=== PATIENT | female | born 1940 | race Caucasian/White ===

== ENCOUNTER 2016-06-18 10:53 | Outpatient (CLI) | payer MEDICARE, MEDICAID | END 2016-06-18 10:54 | disposition home or self-care (01) | DX: Z12.31 Encounter for screening mammogram for malignant neoplasm of breast (principal) ==

== ENCOUNTER 2017-02-10 09:58 | Outpatient (CLI) | payer MEDICARE, MEDICAID ==
[2017-02-10 13:05] LABS: BASOPHILS # (AUTO) 0.1 10^3/uL (0.0-0.1); BASOPHILS % (AUTO) 1.2 %; EOSINOPHILS # (AUTO) 0.2 10^3/uL (0.0-0.7); EOSINOPHILS % (AUTO) 2.2 %; HCT - HEMATOCRIT 37.1 % (37.0-47.0); HGB - HEMOGLOBIN 12.2 g/dL (12.0-16.0); LYMPHOCYTES # (AUTO) 2.3 10^3/uL (1.5-3.5); LYMPHOCYTES % (AUTO) 30.4 %; MEAN CORPUSCULAR HEMOGLOBIN 29.2 pg (27.0-31.0); MEAN CORPUSCULAR VOLUME 88.7 fL (81.0-99.0); MEAN PLATELET VOLUME 8.6 fL (7.9-10.8); MONOCYTES # (AUTO) 0.6 10^3/uL (0.0-1.0); MONOCYTES % (AUTO) 7.3 %; NEUTROPHILS # (AUTO) 4.5 10^3/uL (1.5-6.6); NEUTROPHILS % (AUTO) 58.9 %; RED BLOOD COUNT 4.19 10^6/uL (4.20-5.40); RED CELL DISTRIBUTION WIDTH 14.7 % (12.0-15.0); UNCORRECTED WHITE BLOOD COUNT 7.7 x10^3/uL; WHITE BLOOD COUNT 7.7 x10^3/uL (4.8-10.8)
[2017-02-10 14:05] LABS: THYROID STIMULATING HORMONE 1.78 uIU/mL (0.34-5.60)
[2017-02-10 14:09] LABS: FERRITIN 25.5 ng/mL (11.0-306.8)
[2017-02-10 14:25] LABS: ALBUMIN/GLOBULIN RATIO 1.3 (1.0-2.2); BILIRUBIN,TOTAL 0.5 mg/dL (0.2-1.0); BUN - BLOOD UREA NITROGEN 30 mg/dL (6-20); CALCIUM 9.7 mg/dL (8.5-10.3); CARBON DIOXIDE - CO2 26 mmol/L (21-32); CHLORIDE 102 mmol/L (101-111); CHOL/HDL RATIO 3.4 (<4.4); CHOLESTEROL 260 mg/dL; CREATININE 0.9 mg/dL (0.4-1.0); GFR - MDRD 61 (>89); GLUCOSE 106 mg/dL (70-100); HDL CHOLESTEROL 77 mg/dL; IRON 90 ug/dL (28-170); POTASSIUM 4.5 mmol/L (3.5-5.0); SODIUM 138 mmol/L (135-145); TOTAL IRON BINDING CAPACITY 340 ug/dL (250-450); TRANSFERRIN 243 mg/dL (192-382); TRIGLYCERIDES 157 mg/dL; VLDL CHOLESTEROL 31 mg/dL
== END 2017-02-10 09:59 | disposition home or self-care (01) ==
LOC: LAB.WCP 09:58
PROVIDERS: ATTEND Family Medicine
DX: E78.5 Hyperlipidemia, unspecified (principal); R53.83 Other fatigue
CPT/HCPCS: 36415; 80053; 80061; 82728; 83540; 84443; 84466; 85025

== ENCOUNTER 2017-02-10 18:49 | Emergency (ER) | payer MEDICARE, MEDICAID ==
[2017-02-10 19:07] VITALS: BP 154/74
--- NOTE | 2017-02-10 20:12 | XRAY Preliminary Report ---
Exam: XR SHOULDER 3 VIEW RT IMPRESSION: No acute findings. Mild right acromioclavicular degenerative joint disease. [facility] SITE ID: [id number]
--- NOTE | 2017-02-10 20:15 | XRAY Report ---
EXAM: RIGHT SHOULDER RADIOGRAPHY EXAM DATE: 02/10/2017 07:49 PM. CLINICAL HISTORY: Sudden onset of right shoulder pain. COMPARISON: None. TECHNIQUE: 3 views. FINDINGS: Bones: Normal. No fracture or bone lesion. Joints: The glenohumeral and acromioclavicular joints are normal in alignment. No dislocation. Mild r ight acromioclavicular degenerative joint disease. Soft tissues: No acute findings. IMPRESSION: No acute findings. Mild right acromioclavicular degenerative joint disease. [facility] Referring Provider Line: [phone] SITE ID: [id number]
== END 2017-02-10 21:04 | disposition left against medical advice (07) ==
LOC: ED 18:49
DX: Z53.21 Procedure and treatment not carried out due to patient leaving prior to being seen by health care provider (principal)
CPT/HCPCS: 36415; 80053; 80061; 82728; 83540; 84443; 84466; 85025; 99283

== ENCOUNTER 2017-03-10 10:50 | Outpatient (CLI) | payer MEDICARE, MEDICAID | END 2017-03-10 10:51 | disposition home or self-care (01) | LOC: SC 10:50 | PROVIDERS: ATTEND Internal Medicine Pulmonary Disease | DX: G47.10 Hypersomnia, unspecified (principal); R51 Headache; R06.83 Snoring; G25.81 Restless legs syndrome; G47.8 Other sleep disorders | CPT/HCPCS: 99203; G0463; 99212 ==

== ENCOUNTER 2017-03-11 11:49 | Day surgery (SDC) | payer MEDICARE, MEDICAID ==
[2017-03-11] MEDS ORDERED: LACTATED RINGERS 1,000 ML IV ONE (12:23)
[2017-03-11] MEDS ORDERED: fentaNYL 100 MCG/2 ML VIAL IVP ONE (13:49)
[2017-03-11] MEDS ORDERED: MIDAZOLAM 2 MG/2 ML VIAL IVP ONE (13:49)
[2017-03-11 14:47] VITALS: BP 118/66
== END 2017-03-11 11:50 | disposition home or self-care (01) ==
LOC: SDS 11:49
PROVIDERS: ATTEND Surgery
PROC: 0DJD8ZZ Inspection of Lower Intestinal Tract, Via Natural or Artificial Opening Endoscopic (ICD-10-PCS; principal; 2017-03-11 13:15)
DX: Z12.11 Encounter for screening for malignant neoplasm of colon (principal); K64.8 Other hemorrhoids; Z79.82 Long term (current) use of aspirin; E78.5 Hyperlipidemia, unspecified
CPT/HCPCS: G0121; J7120

== ENCOUNTER 2017-05-16 21:36 | Outpatient (CLI) | payer MEDICARE, MEDICAID | END 2017-05-16 21:37 | disposition home or self-care (01) | LOC: SC 21:36 | PROVIDERS: ATTEND Internal Medicine Pulmonary Disease | DX: Z53.9 Procedure and treatment not carried out, unspecified reason (principal) | CPT/HCPCS: 95810 ==

== ENCOUNTER 2017-07-04 21:05 | Outpatient (CLI) | payer MEDICARE, MEDICAID | END 2017-07-04 21:06 | disposition home or self-care (01) | LOC: SC 21:05 | PROVIDERS: ATTEND Internal Medicine Pulmonary Disease | DX: G47.33 Obstructive sleep apnea (adult) (pediatric) (principal); G47.61 Periodic limb movement disorder | CPT/HCPCS: 95810 ==

== ENCOUNTER 2017-08-05 13:06 | Outpatient (CLI) | payer MEDICARE, MEDICAID | END 2017-08-05 13:07 | disposition home or self-care (01) | LOC: SC 13:06 | PROVIDERS: ATTEND Internal Medicine Pulmonary Disease | DX: G47.33 Obstructive sleep apnea (adult) (pediatric) (principal) | CPT/HCPCS: 99213; G0463; 99212 ==

== ENCOUNTER 2017-10-28 11:08 | Outpatient (CLI) | payer MEDICARE, MEDICAID | END 2017-10-28 11:09 | disposition home or self-care (01) | LOC: SC 11:08 | PROVIDERS: ATTEND Nurse Practitioner Family | DX: G47.33 Obstructive sleep apnea (adult) (pediatric) (principal) | CPT/HCPCS: 99214; G0463; 99212 ==

== ENCOUNTER 2017-12-04 11:14 | Outpatient (CLI) | payer MEDICARE, MEDICAID | END 2017-12-04 11:15 | disposition home or self-care (01) | LOC: SC 11:14 | PROVIDERS: ATTEND Nurse Practitioner Family | DX: G47.33 Obstructive sleep apnea (adult) (pediatric) (principal); G25.81 Restless legs syndrome | CPT/HCPCS: 99214; G0463; 99212 ==

== ENCOUNTER 2018-01-07 10:41 | Outpatient (CLI) | payer MEDICARE, MEDICAID | END 2018-01-07 10:42 | disposition home or self-care (01) | LOC: SC 10:41 | PROVIDERS: ATTEND Nurse Practitioner Family | DX: G47.33 Obstructive sleep apnea (adult) (pediatric) (principal) | CPT/HCPCS: 99214; G0463; 99212 ==

== ENCOUNTER 2018-02-15 19:20 | Outpatient (CLI) | payer MEDICARE, MEDICAID | END 2018-02-15 19:21 | disposition home or self-care (01) | LOC: SC 19:20 | PROVIDERS: ATTEND Internal Medicine Pulmonary Disease | DX: G47.33 Obstructive sleep apnea (adult) (pediatric) (principal) | CPT/HCPCS: 95810 ==

== ENCOUNTER 2018-06-04 13:07 | Outpatient (CLI) | payer MEDICARE, MEDICAID | END 2018-06-04 13:08 | disposition home or self-care (01) | LOC: SC 13:07 | PROVIDERS: ATTEND Nurse Practitioner Family | DX: G47.33 Obstructive sleep apnea (adult) (pediatric) (principal) | CPT/HCPCS: 99214; G0463; 99212 ==

== ENCOUNTER 2018-06-06 20:08 | Outpatient (CLI) | payer MEDICARE, MEDICAID | END 2018-06-06 20:09 | disposition home or self-care (01) | LOC: SC 20:08 | PROVIDERS: ATTEND Internal Medicine Pulmonary Disease | DX: G47.33 Obstructive sleep apnea (adult) (pediatric) (principal) | CPT/HCPCS: 95811 ==

== ENCOUNTER 2018-07-03 12:38 | Outpatient (CLI) | payer MEDICARE, MEDICAID ==
[2018-07-03 19:47] LABS: BASOPHILS # (AUTO) 0.1 10^3/uL (0.0-0.1); BASOPHILS % (AUTO) 1.2 %; EOSINOPHILS # (AUTO) 0.1 10^3/uL (0.0-0.7); EOSINOPHILS % (AUTO) 2.1 %; LYMPHOCYTES % (AUTO) 32.2 %; MEAN CORPUSCULAR HEMOGLOBIN 28.8 pg (27.0-31.0); MEAN CORPUSCULAR HGB CONC 32.3 g/dL (32.0-36.0); MEAN CORPUSCULAR VOLUME 89.3 fL (81.0-99.0); MEAN PLATELET VOLUME 8.6 fL (7.9-10.8); MONOCYTES # (AUTO) 0.4 10^3/uL (0.0-1.0); MONOCYTES % (AUTO) 7.3 %; NEUTROPHILS # (AUTO) 3.5 10^3/uL (1.5-6.6); NEUTROPHILS % (AUTO) 57.2 %; PLT - PLATELET COUNT 310 10^3/uL (130-450); RED BLOOD COUNT 4.14 10^6/uL (4.20-5.40); RED CELL DISTRIBUTION WIDTH 14.2 % (12.0-15.0); WHITE BLOOD COUNT 6.1 x10^3/uL (4.8-10.8)
[2018-07-03 20:23] LABS: ALBUMIN 4.1 g/dL (3.2-5.5); ALBUMIN/GLOBULIN RATIO 1.1 (1.0-2.2); ALKALINE PHOSPHATASE 59 IU/L (42-121); ALT ALANINE AMINOTRANSFERASE 21 IU/L (10-60); AST ASPARTATE AMINOTRANSFERASE 23 IU/L (10-42); BILIRUBIN,TOTAL 0.5 mg/dL (0.2-1.0); BUN - BLOOD UREA NITROGEN 28 mg/dL (6-20); CALCIUM 9.4 mg/dL (8.5-10.3); CARBON DIOXIDE - CO2 27 mmol/L (21-32); CHLORIDE 105 mmol/L (101-111); CHOLESTEROL 246 mg/dL; CREATININE 0.9 mg/dL (0.4-1.0); GFR - MDRD 61 (>89); GLUCOSE 98 mg/dL (70-100); HDL CHOLESTEROL 82 mg/dL; LDL CHOLESTEROL,CALCULATED 140 mg/dL; LDL/HDL RATIO 1.7 (<4.4); MAGNESIUM 2.6 mg/dL (1.7-2.8); SODIUM 141 mmol/L (135-145); TOTAL PROTEIN 7.9 g/dL (6.7-8.2); VLDL CHOLESTEROL 24 mg/dL
== END 2018-07-03 12:39 | disposition home or self-care (01) ==
LOC: LAB.WCP 12:38
PROVIDERS: ATTEND Family Medicine
DX: E61.2 Magnesium deficiency (principal); E78.5 Hyperlipidemia, unspecified; F32.9 Major depressive disorder, single episode, unspecified; R03.0 Elevated blood-pressure reading, without diagnosis of hypertension
CPT/HCPCS: 36415; 80053; 80061; 83721; 83735; 84443; 85025

== ENCOUNTER 2018-08-06 11:06 | Outpatient (CLI) | payer MEDICARE, MEDICAID | END 2018-08-06 11:07 | disposition home or self-care (01) | LOC: SC 11:06 | PROVIDERS: ATTEND Nurse Practitioner Family | DX: G47.33 Obstructive sleep apnea (adult) (pediatric) (principal); G25.81 Restless legs syndrome | CPT/HCPCS: 99214; G0463; 99212 ==

== ENCOUNTER 2018-09-08 13:15 | Outpatient (CLI) | payer MEDICARE, MEDICAID | END 2018-09-08 13:16 | disposition home or self-care (01) | LOC: SC 13:15 | PROVIDERS: ATTEND Nurse Practitioner Family | DX: G47.33 Obstructive sleep apnea (adult) (pediatric) (principal) | CPT/HCPCS: 99214; G0463; 99212 ==

== ENCOUNTER 2018-10-20 10:33 | Outpatient (CLI) | payer MEDICARE, MEDICAID | END 2018-10-20 10:34 | disposition critical access hospital (66) | LOC: EMS 10:33 | PROVIDERS: ATTEND Surgery | DX: R42 Dizziness and giddiness (principal); R06.02 Shortness of breath; R10.9 Unspecified abdominal pain | CPT/HCPCS: A0425; A0429 ==

== ENCOUNTER 2018-10-20 10:57 | Emergency (ER) | payer MEDICARE, MEDICAID ==
[2018-10-20 11:26] LABS: BASOPHILS # (AUTO) 0.1 10^3/uL (0.0-0.1); BASOPHILS % (AUTO) 0.9 %; EOSINOPHILS # (AUTO) 0.2 10^3/uL (0.0-0.7); EOSINOPHILS % (AUTO) 1.8 %; HGB - HEMOGLOBIN 11.1 g/dL (12.0-16.0); LYMPHOCYTES # (AUTO) 2.4 10^3/uL (1.5-3.5); LYMPHOCYTES % (AUTO) 26.5 %; MEAN CORPUSCULAR HEMOGLOBIN 28.9 pg (27.0-31.0); MEAN CORPUSCULAR VOLUME 90.4 fL (81.0-99.0); MONOCYTES # (AUTO) 0.5 10^3/uL (0.0-1.0); MONOCYTES % (AUTO) 5.7 %; NEUTROPHILS # (AUTO) 5.7 10^3/uL (1.5-6.6); NEUTROPHILS % (AUTO) 64.8 %; PLT - PLATELET COUNT 316 10^3/uL (130-450); RED BLOOD COUNT 3.84 10^6/uL (4.20-5.40); RED CELL DISTRIBUTION WIDTH 14.1 % (12.0-15.0); WHITE BLOOD COUNT 8.9 x10^3/uL (4.8-10.8)
[2018-10-20] MEDS ORDERED: SODIUM CHLORIDE 0.9% 1,000 ML IV ONE ×2 (11:36→13:31)
--- NOTE | 2018-10-20 11:39 | ED Physician Documentation ---
History of Present Illness - Stated complaint Stated Complaint: DIZZY - Chief complaint Chief Complaint: General - History obtained from History obtained from: Patient - History of Present Illness Timing: Today - Additonal information Additional information: Patient has been in her usual state of health and was getting ready to go see her doctor for routine visit when she had a basket of laundry in her arms she noted that she felt lightheaded and had spots in front of her vision. She really did not feel well went into see her doctor her doctor noticed this and checked her orthostatics they were okay and the patient was complaining of dizziness and lightheadedness and the patient is sent to the emergency department for further evaluation. The patient herself states that she has not had any vomiting or diarrhea recently she has not had any sweats she does have a dry mouth and thinks that she has been hydrating adequately.She denies any chest pain. Review of Systems Constitutional: denies: Fever, Sweats Eyes: denies: Decreased vision Ears: denies: Ear pain Nose: denies: Congestion Throat: denies: Sore throat Cardiac: denies: Chest pain / pressure, Palpitations Respiratory: denies: Dyspnea, Cough GI: denies: Abdominal Pain, Nausea, Vomiting : denies: Dysuria, Frequency Skin: denies: Rash Musculoskeletal: denies: Neck pain, Back pain, Extremity pain Neurologic: reports: Generalized weakness, Other (lightheaded and dizzy). de nies: Focal weakness, Numbness, Confused, Altered mental status, LOC PD PAST MEDICAL HISTORY - Past Medical History Cardiovascular: None Respiratory: Asthma Endocrine/Autoimmune: None GI: None URBAN FORESTER: None : None HEENT: None Psych: Anxiety Musculoskeletal: Other Derm: None - Past Surgical History Past Surgical History: Yes General: Other /URBAN FORESTER: Hysterectomy - Present Medications Home Medications: Ambulatory Orders Medication Instructions Recorded Confirmed Albuterol Sulf [Ventolin Hfa 1 puffs IH DAILY PRN 03/10/17 03/10/17 Inhaler] Fluticasone [Flonase] 1 spray TACOS DAILY PRN 03/10/17 03/10/17 Montelukast [Singulair] 10 mg PO DAILY 03/10/17 03/10/17 Sertraline [Zoloft] 100 mg PO DAILY 03/10/17 03/10/17 traMADol [Ultram] 50 mg PO BID 03/10/17 03/10/17 - Allergies Allergies/Adverse Reactions: Allergies Allergy/AdvReac Type Severity Reaction Status Date / Time succinylcholine AdvReac Anaphylaxis Verified 10/20/18 11:08 [From Anectine] - Social History Does the pt smoke?: No Smoking Status: Never smoker Does the pt drink ETOH?: No Does the pt have substance abuse?: No - Immunizations Immunizations are current?: Yes - POLST Patient has POLST: No PD ED PE NORMAL - Vitals Vital signs reviewed: Yes (tachy and hypertensive ) - General General: Alert and oriented X 3, No acute distress, Well developed/nourished - HEENT HEENT: Atraumatic, PERRL, EOMI, Ears normal, Pharynx benign, Other (dry mucous membranes ) - Neck Neck: Supple, no meningeal sign, No bony TTP - Cardiac Cardiac: RRR, No murmur, Other (tachy to 100) - Respiratory Respiratory: No respiratory distress, Clear bilaterally - Abdomen Abdomen: Soft, Non tender - Back Back: No CVA TTP, No spinal TTP - Derm Derm: Normal color, Warm and dry, No rash - Extremities Extremities: No deformity, No edema - Neuro Neuro: Alert and oriented X 3, time stamp assembler 2-12 intact, No motor deficit, No sensory deficit, Normal speech Eye Opening: Spontaneous Motor: Obeys Commands Verbal: Oriented GCS Score: 15 - Psych Psych: Normal mood, Normal affect Results - Vitals Vitals: Vital Signs - 24 hr 10/20/18 10/20/18 10/20/18 11:01 13:29 13:39 Temperature 35.9 C L 36.5 C Heart Rate 105 H 92 87 Respiratory 20 20 18 Rate Blood Pressure 147/98 H 130/63 129/74 O2 Saturation 99 100 99 Oxygen O2 Source Room air - EKG (time done) 1120 Rate: Rate (enter#) (87) Rhythm: NSR Compare to prior EKG: Old EKG unavailable Computer interpretation: Agree with computer - Labs Labs: Laboratory Tests 10/20/18 10/20/18 10/20/18 11:10 11:10 11:10 WBC 8.9 RBC 3.84 L Hgb 11.1 L Hct 34.7 L MCV 90.4 MCH 28.9 MCHC 32.0 RDW 14.1 Plt Count 316 MPV 10.0 Neut # (Auto) 5.7 Lymph # (Auto) 2.4 Weld # (Auto) 0.5 Eos # (Auto) 0.2 Baso # (Auto) 0.1 Absolute Nucleated RBC 0.00 Nucleated RBC % 0.0 Sodium 139 Potassium 3.9 Chloride 102 Carbon Dioxide 23 Anion Gap 14.0 H BUN 19 Creatinine 1.0 Estimated GFR (MDRD) 54 L Glucose 106 H Calcium 9.3 Total Bilirubin 0.4 AST 22 ALT 21 Alkaline Phosphatase 67 Troponin I < 0.04 Total Protein 8.2 Albumin 4.3 Globulin 3.9 Albumin/Globulin Ratio 1.1 Lipase 40 Urine Color Urine Clarity Urine pH Ur Specific [place] Urine Protein Urine Glucose (UA) Urine Ketones Urine Occult Blood Urine Nitrite Urine Bilirubin Urine Urobilinogen Ur Leukocyte Esterase Urine RBC Urine WBC Ur Squamous Epith Cells Urine Bacteria Ur Microscopic Review Urine Culture Comments 10/20/18 11:11 WBC RBC Hgb Hct MCV MCH MCHC RDW Plt Count MPV Neut # (Auto) Lymph # (Auto) Weld # (Auto) Eos # (Auto) Baso # (Auto) Absolute Nucleated RBC Nucleated RBC % Sodium Potassium Chloride Carbon Dioxide Anion Gap BUN Creatinine Estimated GFR (MDRD) Glucose Calcium Total Bilirubin AST ALT Alkaline Phosphatase Troponin I Total Protein Albumin Globulin Albumin/Globulin Ratio Lipase Urine Color YELLOW Urine Clarity CLEAR Urine pH 7.0 Ur Specific [place] <=1.005 Urine Protein NEGATIVE Urine Glucose (UA) NEGATIVE Urine Ketones NEGATIVE Urine Occult Blood NEGATIVE Urine Nitrite NEGATIVE Urine Bilirubin NEGATIVE Urine Urobilinogen 0.2 (NORMAL) Ur Leukocyte Esterase TRACE H Urine RBC None Seen Urine WBC 0-3 Ur Squamous Epith Cells FEW Squamous Urine Bacteria None Seen Ur Microscopic Review INDICATED Urine Culture Comments INDICATED Procedures - IVC sono (time) 1135 Bedside IVC sono: IVC measures (cm) (0.90), IVC collapsed c insp (cm) (complete), Dehydration (est 1-2 liter deficit) PD MEDICAL DECISION MAKING - ED course Complexity details: reviewed results, re-evaluated patient, considered differential, d/w patient ED course: 78-year-old female dizzy and lightheaded with exertion is found to be dehydrated on interrogation of the inferior vena cava she is administered 2 L normal saline and feels much improved. Departure - Departure Disposition: 01 Home, Self Care Clinical Impression: Dehydration Instructions: ED Dehydration Follow-Up: Yvette Elam MD [Primary Care Provider] -
[2018-10-20 11:40] LABS: ALBUMIN 4.3 g/dL (3.2-5.5); ALBUMIN/GLOBULIN RATIO 1.1 (1.0-2.2); BILIRUBIN,TOTAL 0.4 mg/dL (0.2-1.0); CALCIUM 9.3 mg/dL (8.5-10.3); TOTAL PROTEIN 8.2 g/dL (6.7-8.2)
[2018-10-20 13:03] LABS: BILIRUBIN,URINE NEGATIVE (NEGATIVE); GLUCOSE, URINE (UA) NEGATIVE (NEGATIVE); KETONES,URINE (UA) NEGATIVE (NEGATIVE); LEUKOCYTE ESTERASE, URINE TRACE (NEGATIVE); NITRITE,URINE NEGATIVE (NEGATIVE); OCCULT BLOOD,URINE NEGATIVE (NEGATIVE); PROTEIN,URINE NEGATIVE (NEGATIVE); UROBILINOGEN,URINE 0.2 (NORMAL) E.U./dL (NORMAL)
[2018-10-20 13:04] LABS: CLARITY,URINE CLEAR (CLEAR)
[2018-10-20 13:15] LABS: BACTERIA,URINE None Seen /HPF (None Seen); RBC,URINE None Seen /HPF (0-5); SQUAMOUS EPITHELIAL CELL,UR FEW Squamous (<= Few)
[2018-10-20 13:41] VITALS: BP 129/74
== END 2018-10-20 15:05 | disposition home or self-care (01) ==
LOC: EDUNIT# → ED 10:57
DX: E86.0 Dehydration (principal); N39.0 Urinary tract infection, site not specified
CPT/HCPCS: 36415; 80053; 81001; 81003; 83690; 84484; 85025; 87086; 93005; 96360; 96361; 99284

== ENCOUNTER 2018-10-20 18:29 | Outpatient (CLI) | payer MEDICARE, MEDICAID | END 2018-10-20 19:00 | disposition home or self-care (01) | LOC: LAB.R 18:29 | PROVIDERS: ATTEND Family Medicine | DX: N39.0 Urinary tract infection, site not specified (principal) | CPT/HCPCS: 87086 ==

== ENCOUNTER 2018-11-02 13:09 | Outpatient (CLI) | payer MEDICARE, MEDICAID | END 2018-11-02 13:10 | disposition home or self-care (01) | LOC: SC 13:09 | PROVIDERS: ATTEND Nurse Practitioner Family | DX: G47.33 Obstructive sleep apnea (adult) (pediatric) (principal) | CPT/HCPCS: 99214; G0463; 99212 ==

== ENCOUNTER 2018-12-14 14:20 | Outpatient (CLI) | payer MEDICARE, MEDICAID | END 2018-12-14 23:59 | disposition home or self-care (01) | LOC: LAB.R 14:20 | PROVIDERS: ATTEND Family Medicine | DX: R35.0 Frequency of micturition (principal) | CPT/HCPCS: 87086 ==

== ENCOUNTER 2018-12-31 12:57 | Outpatient (CLI) | payer MEDICARE, MEDICAID ==
--- NOTE | 2019-01-01 08:58 | Ultrasound Report ---
Reason: URINARY FREQUENCY Procedure Date: 12/31/2018 Accession Number: [id number] / [id number] Procedure: US - Retroperitoneal CPT Code: FULL RESULT: EXAM: RENAL ULTRASOUND EXAM DATE: 12/31/2018 01:29 PM. CLINICAL HISTORY: URINARY FREQUENCY. COMPARISON: None. TECHNIQUE: Real-time scanning was performed with static images obtained. FINDINGS: Right Kidney: 10.1 x 4.4 x 3.8 cm. Normal echotexture with no stones, contour-deforming masses, or hydronephrosis. Extra renal pelvis is noted. Left Kidney: 11.1 x 4.9 x 4.9 cm. Normal echotexture with no stones, contour-deforming masses, or hydronephrosis. Exophytic lower pole simple cyst is seen measuring 3.3 x 2.8 x 3.3 cm. Bladder: Bilateral jets seen. The prevoid bladder volume was 178 cc. The postvoid bladder volume was 83 cc. Other: None. IMPRESSION: 1. Right extra renal pelvis noted. No hydronephrosis bilaterally. No renal calculi are seen. 2. Bilateral urinary bladder jets are evident. [facility]
== END 2018-12-31 12:58 | disposition home or self-care (01) ==
LOC: DI 12:57
PROVIDERS: ATTEND Family Medicine
DX: R35.0 Frequency of micturition (principal)
CPT/HCPCS: 76770

== ENCOUNTER 2019-03-05 10:12 | Outpatient (CLI) | payer MEDICARE, MEDICAID ==
--- NOTE | 2019-03-11 09:23 | DEXA Report ---
Reason: BONE DISORDER Procedure Date: 03/05/2019 Accession Number: [id number] / [id number] Procedure: DEX - Dexa Spine and/or Hip CPT Code: Final Report FULL RESULT: EXAM: Dexa Spine and/or Hip DATE: 03/05/2019 10:46 AM CLINICAL HISTORY: BONE DISORDER TECHNIQUE: Dual energy x-ray absorptiometry (DXA) was performed on a [employer] System. Regions measured are the AP Spine, femoral neck, and if needed forearm. COMPARISON: 10/13/2015. In accordance with the International Society for Clinical Densitometry (ISCD) guidelines, data from previous exams may be reanalyzed using current recommendations and techniques. This is done to allow a more accurate basis for comparison with the current study. FINDINGS: The data for the lumbar spine is as follows: BMD (g/cm/cm) T-SCORE Z-SCORE REGION L1 1.030 -0.8 0.6 L2 1.092 -0.9 0.6 L3 1.008 -1.6 -0.1 L4 0.894 -2.6 -1.1 TOTAL 1.005 -1.5 0.0 NOTE: All evaluable vertebrae are used for classification The data for the hip is as follows: BMD (g/cm/cm) T-SCORE Z-SCORE REGION Neck 0.845 -1.4 0.4 TOTAL 0.859 -1.2 0.4 NOTE: The femoral neck or total proximal femur, whichever is lowest, is used for classification. DXA RESULTS SUMMARY: Spine SCAN DATE AGE BMD CHANGE VS CHANGE VS PREVIOUS PREVIOUS % 4[birth year]05[birth year]2019 [age] 1.005 -0.034* -3.3* 10/13/2015 [age] 1.039 * Denotes significant change at the 95% confidence level. Denotes dissimilar scan types or analysis methods. DXA RESULTS SUMMARY: Hip SCAN DATE [age]GE BMD CHANGE VS CHANGE VS PREVIOUS PREVIOUS % [birth year]2019 [age] 0.859 -0.002 -0.2 10[birth year]/2015 [age] 0.861 * Denotes significant change at the 95% confidence level. Denotes dissimilar scan types or analysis methods. IMPRESSION: THE WHO CLASSIFICATION BASED ON THE INTERNATIONAL REFERENCE STANDARD IS OSTEOPENIA. THE FRACTURE RISK IS INCREASED. RECOMMENDATION: Patients with diagnosis of osteoporosis or osteopenia should have regular bone mineral density assessment. For those eligible for Medicare, routine testing is allowed once every 2 years. Testing frequency can be increased for patients who have rapidly progressing disease or for those who are receiving medical therapy to restore bone mass. COMMENT: World Health Organization (WHO) definitions for osteoporosis and osteopenia: NORMAL BMD: T-score at -1.0 or higher, fracture risk is low OSTEOPENIA BMD: T-score between -1.0 and -2.5, fracture risk is increased. OSTEOPOROSIS BMD: T-score at -2.5 or lower, fracture risk is high. National Osteoporosis Foundation recommends: 1. Obtain adequate dietary calcium (at least 1200 mg per day) and vitamin D (400-800 international units per day). 2. Participate, as appropriate, in regular weightbearing and muscle-strengthening exercise. 3. Avoid tobacco use and reduce alcohol and caffeine intake. 4. For more detailed information see the website at www.NOF.org.
== END 2019-03-05 10:13 | disposition home or self-care (01) ==
LOC: DI 10:12
PROVIDERS: ATTEND Family Medicine
DX: M85.89 Other specified disorders of bone density and structure, multiple sites (principal)
CPT/HCPCS: 77080

== ENCOUNTER 2019-06-01 08:00 | Outpatient (CLI) | payer MEDICARE, MEDICAID ==
[2019-06-01 19:05] LABS: BASOPHILS # (AUTO) 0.1 10^3/uL (0.0-0.1); BASOPHILS % (AUTO) 1.4 %; EOSINOPHILS # (AUTO) 0.2 10^3/uL (0.0-0.7); EOSINOPHILS % (AUTO) 3.9 %; HGB - HEMOGLOBIN 11.7 g/dL (12.0-16.0); LYMPHOCYTES # (AUTO) 2.3 10^3/uL (1.5-3.5); LYMPHOCYTES % (AUTO) 38.7 %; MEAN CORPUSCULAR HGB CONC 31.6 g/dL (32.0-36.0); MEAN CORPUSCULAR VOLUME 91.6 fL (81.0-99.0); MEAN PLATELET VOLUME 10.4 fL (7.9-10.8); MONOCYTES # (AUTO) 0.5 10^3/uL (0.0-1.0); MONOCYTES % (AUTO) 9.1 %; NEUTROPHILS # (AUTO) 2.8 10^3/uL (1.5-6.6); NEUTROPHILS % (AUTO) 46.7 %; PLT - PLATELET COUNT 345 10^3/uL (130-450); RED BLOOD COUNT 4.04 10^6/uL (4.20-5.40); RED CELL DISTRIBUTION WIDTH 14.6 % (12.0-15.0); WHITE BLOOD COUNT 5.9 x10^3/uL (4.8-10.8)
[2019-06-01 19:24] LABS: ALBUMIN 4.2 g/dL (3.2-5.5); ALBUMIN/GLOBULIN RATIO 1.1 (1.0-2.2); BILIRUBIN,TOTAL 0.4 mg/dL (0.2-1.0); CALCIUM 9.4 mg/dL (8.5-10.3); CREATININE 0.9 mg/dL (0.4-1.0)
== END 2019-06-01 23:59 | disposition home or self-care (01) ==
LOC: LAB.WCP 08:00
PROVIDERS: ATTEND Nurse Practitioner Family
DX: R53.83 Other fatigue (principal)
CPT/HCPCS: 36415; 80053; 84443; 85025

== ENCOUNTER 2019-09-02 11:27 | Outpatient (CLI) | payer MEDICARE, MEDICAID ==
--- NOTE | 2019-09-02 11:00 | SLEEP CARE CONSULTATION ---
Information from patient questionnaire entered by Lilia Ramirez. I have reviewed and concur with the information entered by Lilia Ramirez. This document represents the service I personally performed and the decisions made by me, Micki Alvarado, RN, MSN, SPRING [employer]TER HELPER. History of Present Illness Service Date and Time: 09/02/2019 1127 Previous diagnosis: Mild, Obstructive Sleep Apnea-Hypopnea Syndrome AHI: 7.7 (in 2018) Reason for follow up: other (10 month visit ) Equipment type: CPAP Equipment obtained from: [employer] Subjective Patient concerns: reports: nasal congestion (from seasonal allergies making it difficult to use CPAP. ), other (unable to get CPAP supplies from current DME since insurance change) Initial [place] Sleepiness Scale score: 7 (in 2017) Physical Exam Height: 5 ft 4 in Impression and Plan 1. Obstructive Sleep Apnea-Hypopnea Syndrome, mild, with unknown treatment compliance and unknown apnea control as no compliance data available at visit. When I contacted patient she was in route to another appointment and unable to car clerk pullman for a quick appointment to address her CPAP concerns of difficulty using CPAP due to nasal allergies and difficulty getting equipment due to change in insurance. She was informed that her PCP Dr. Mays is covered by her insurance but wanted to make sure this clinic also covered. I informed her that this clinic and her PCP clinic both are associated with [facility] and accept same insurances. Clarification can be done with my office staff. Since there was no time to discuss her use of CPAP and nasal congestion the patient was advised to contact my office to reschedule. Until then I will start the process of transferring her to a new DME that will cover her CPAP supplies with a DWO prescription. Patient voiced frustration with her insurance and has contacted them with her concerns. * Reschedule appointment. * Transfer to new DME * Continue auto CPAP pressure at 6-8 cmH2O * Notify me if snoring with mask or feeling that the pressure is too much or too little * Call this office if any problems using CPAP * Visit Type: Telehealth Video Video Type: [place] Patient Location: car Location of Provider: Home Patient agrees and consents to this telehealth visit type: Yes Patient agrees to have their insurance billed: Yes Time Spent with Patient (minutes): 8 Provider Statement: I spent 100% of the Telehealth Video Call with the patient with greater than 50% spent counseling the patient and coordination of care.
== END 2019-09-02 11:28 | disposition home or self-care (01) ==
LOC: SC 11:27
PROVIDERS: ATTEND Nurse Practitioner Family
DX: G47.33 Obstructive sleep apnea (adult) (pediatric) (principal)

== ENCOUNTER 2019-09-21 10:03 | Outpatient (CLI) | payer MEDICARE, MEDICAID ==
[2019-09-21 10:26] LABS: BASOPHILS # (AUTO) 0.1 10^3/uL (0.0-0.1); BASOPHILS % (AUTO) 0.7 %; EOSINOPHILS # (AUTO) 0.2 10^3/uL (0.0-0.7); EOSINOPHILS % (AUTO) 1.7 %; HGB - HEMOGLOBIN 11.8 g/dL (12.0-16.0); LYMPHOCYTES # (AUTO) 3.3 10^3/uL (1.5-3.5); LYMPHOCYTES % (AUTO) 34.9 %; MEAN CORPUSCULAR HEMOGLOBIN 28.4 pg (27.0-31.0); MEAN CORPUSCULAR VOLUME 88.7 fL (81.0-99.0); MEAN PLATELET VOLUME 9.4 fL (7.9-10.8); MONOCYTES # (AUTO) 0.6 10^3/uL (0.0-1.0); MONOCYTES % (AUTO) 6.6 %; NEUTROPHILS # (AUTO) 5.3 10^3/uL (1.5-6.6); NEUTROPHILS % (AUTO) 55.8 %; PLT - PLATELET COUNT 336 10^3/uL (130-450); RED BLOOD COUNT 4.16 10^6/uL (4.20-5.40); RED CELL DISTRIBUTION WIDTH 13.8 % (12.0-15.0); WHITE BLOOD COUNT 9.5 x10^3/uL (4.8-10.8)
[2019-09-21 10:40] LABS: BILIRUBIN,TOTAL 0.3 mg/dL (0.2-1.0); CALCIUM 9.1 mg/dL (8.5-10.3); CREATININE 0.7 mg/dL (0.4-1.0); TOTAL PROTEIN 7.9 g/dL (6.7-8.2)
== END 2019-09-21 10:04 | disposition home or self-care (01) ==
LOC: LAB 10:03
PROVIDERS: ATTEND Nurse Practitioner Family
DX: D50.9 Iron deficiency anemia, unspecified (principal); R53.83 Other fatigue
CPT/HCPCS: 36415; 80053; 84443; 85025

== ENCOUNTER 2020-02-24 10:47 | Outpatient (CLI) | payer MEDICARE, OTHER, MEDICAID ==
--- NOTE | 2020-02-24 16:04 | XRAY Report ---
PROCEDURE: Hip w/Pelvis 2-3V RT INDICATIONS: PAIN IN RIGHT HIP TECHNIQUE: AP pelvis with lateral view(s) of the bilateral hip(s). COMPARISON: None. FINDINGS: Bones: No fractures or dislocations. Pelvic ring appears intact. No suspicious bony lesions. Mild osseous hypertrophy noted in the hips bilaterally compatible with mild osteoarthritis. Soft tissues: The visualized bowel gas pattern is normal. No suspicious soft tissue calcifications. IMPRESSION: 1. Mild osteoarthritis. 2. No acute osseous lesion. If there is continued clinical concern for pathology, then advanced imagi ng (CT, MR, bone scan) should be considered for further evaluation. Reviewed by: Mojgan Giles MD, PhD on 02/24/2020 4:03 PM PST Approved by: Mojgan Giles MD, PhD on 02/24/2020 4:03 PM PST Station ID: [id number]
--- NOTE | 2020-02-24 16:06 | XRAY Report ---
PROCEDURE: Knee 2 View RT INDICATIONS: PAIN TECHNIQUE: 2 views of the right knee(s) were acquired. COMPARISON: None. FINDINGS: Bones: No fractures or dislocations. No suspicious bony lesions. Moderate patellofemoral compartmen t osteoarthritis. Mild lateral and medial compartment osteoarthritis. Soft tissues: No joint effusion. No suspicious soft tissue calcifications. IMPRESSION: Tricompartmental osteoarthritis as described above. Reviewed by: Mojgan Giles MD, PhD on 02/24/2020 4:04 PM [facility] Approved by: Mojgan Giles MD, PhD on 02/24/2020 4:04 PM [facility] Station ID: [id number]
== END 2020-02-24 10:48 | disposition home or self-care (01) ==
LOC: DI 10:47
PROVIDERS: ATTEND Pain Medicine Pain Medicine
DX: M16.11 Unilateral primary osteoarthritis, right hip (principal); M17.11 Unilateral primary osteoarthritis, right knee

== ENCOUNTER 2020-03-01 10:56 | Outpatient (CLI) | payer MEDICARE, OTHER, MEDICAID ==
--- NOTE | 2020-03-01 11:38 | SLEEP CARE CONSULTATION ---
Information from patient questionnaire entered by Nikky Conner. I have reviewed and concur with the information entered by Nikky Conner. This document represents the service I personally performed and the decisions made by me, Mabel Phillips ARNP. History of Present Illness Service Date and Time: 03/01/2020 1056 Previous diagnosis: Mild, Obstructive Sleep Apnea-Hypopnea Syndrome AHI: 7.7 (in 2018) Reason for follow up: six month (possible transfer of DME) Equipment type: CPAP Equipment obtained from: [facility], [place] (not getting supplies as needed; too far from her home) [facility]: [facility]: Polysomnography HPI additional information: MICHAEL HALEY was diagnosed to have mild, AHI 7.7, obstructive sleep apnea- hypopnea syndrome and returned today for CPAP therapy six month follow-up. CPAP Compliance Data Compliance data discussion: She has not been using her CPAP for about a year due to lack of communication with her DME suppliers, getting wrong supplies and physical distance to the DME has been affecting her ability to use her machine. She just wants to quit using the whole thing due to frustration and not wanting to have to travel far to be able to obtain supplies. Subjective Patient concerns: reports: mask discomfort, air blowing in eyes, mask leak noise. denies: aerophagia, condensation in mask/hose, nasal congestion, dry mouth, nose, throat, epistaxis, other On therapy, patient: reports: sleeping better, awakening more refreshed, being more awake and alert during the day, more rested overall. denies: drowsiness while driving Initial [place] Sleepiness Scale score: 7 (in 2017) Current [place] Sleepiness Scale score: 4 Allergies and Home Medications Drug allergies reviewed: Yes (anectine) Home medication list reviewed: Yes (no changes) Review of Systems Review of systems same as previous: No (right wrist carpal tunnel) Physical Exam Heart Rate: 78 O2 Saturation: 99 Height: 5 ft 4 in Weight: 168 lb Body Mass Index: 28.8 BMI Classification: Overweight Impression and Plan 1. Obstructive Sleep Apnea-Hypopnea Syndrome, mild, with [poor] treatment compliance and [unknown] apnea control. She has not been using the CPAP machine for the last year. She did feel that on CPAP therapy, the patient did better sleep quality and is more rested overall. She would like to just stop treatment with the CPAP at this time. I discussed with her that she does have mild obstructive sleep apnea and can try an oral appliance instead of the CPAP therapy. After some discussion, the patient opted to go with the oral appliance. Patient given list of accredited dentists in general area to call for a consult. A prescription was given to start process. Patient advised to check insurance to see if oral appliance is covered. Some dentists do not take Medicare. I will have patient follow up in 3 months to check effectiveness of treatment. If reduction of symptoms and comfortable with treatment, a polysomnography will be ordered using the oral appliance to check efficacy of treatment. Patient voiced understanding and agreement with plan. Patient's apnea severity and rationale for treatment to reduce apnea, improve sleep quality and reduce cardiovascular and cerebrovascular events was reviewed. * Oral appliance * List of accredited dentists given to patient * Attempt to lose weight * Call this office if any problems using CPAP * Return for follow up in 3 months after oral appliance obtained, or sooner if concerns arise Follow up with Sleep Care in: 3 months Visit Type: In Office Time Spent with Patient (minutes): 17 Provider Statement: I spent 100% of the Face to Face Visit with the patient with greater than 50% spent counseling the patient and coordination of care.
== END 2020-03-01 10:57 | disposition home or self-care (01) ==
LOC: SC 10:56
PROVIDERS: ATTEND Nurse Practitioner Family
DX: G47.33 Obstructive sleep apnea (adult) (pediatric) (principal); E66.3 Overweight; Z68.28 Body mass index [BMI] 28.0-28.9, adult
CPT/HCPCS: 99213; G0463; 99212

== ENCOUNTER 2020-08-24 10:18 | Outpatient (CLI) | payer MEDICARE, MEDICAID | END 2020-08-24 10:19 | disposition home or self-care (01) | LOC: LAB.N 10:18 | PROVIDERS: ATTEND Orthopaedic Surgery | DX: Z01.812 Encounter for preprocedural laboratory examination (principal); Z20.822 Contact with and (suspected) exposure to COVID-19 ==

== ENCOUNTER 2020-08-30 10:13 | Day surgery (SDC) | payer MEDICARE, MEDICAID ==
--- OUTSIDE RECORDS SUMMARY | 2020-08-30 10:16 | EXTERNAL MEDICAL SUMMARY RPT | Continuity of Care Document ---
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
[2020-08-30] MEDS ORDERED: LACTATED RINGERS 1,000 ML IV ONE ×2 (10:48→12:43)
[2020-08-30] MEDS ORDERED: LIDOCAINE MPF 2%-EPI 1:200000 20 ML VIAL ONE ×2 (10:48→11:16)
[2020-08-30] MEDS ORDERED: BUPIVACAINE 0.5% PF 30 ML VIAL ONE (11:17)
--- NOTE | 2020-08-30 11:34 | ANESTHESIA ---
Pre-Anesthesia VS, & Labs - Diagnosis R CTS - Procedure R CTR Vital Signs: Temp Pulse Resp BP Pulse Ox 36.2 C L 100 16 146/99 H 99 08/30/20 10:35 08/30/20 10:35 08/30/20 10:35 08/30/20 10:35 08/30/20 10:35 Height: 5 ft 3.75 in Weight (kg): 76 kg Body Mass Index: 29.0 BMI Classification: Overweight - NPO >8 hours - Is Patient ?: No - Lab Results Lab results reviewed: Yes Home Medications and Allergies Home Medications: Ambulatory Orders Ascorbic Acid [Vitamin C] 1,000 mg PO DAILY 08/29/20 Aspirin [Lisa] 325 mg PO DAILY 08/29/20 Cholecalciferol (Vitamin D3) [Vitamin D3] 1,000 unit PO DAILY 08/29/20 Cyanocobalamin (Vitamin B-12) [Vitamin B-12] 1,000 mcg PO DAILY 08/29/20 Ipratropium/Albuterol [Combivent Respimat] 1 puffs IH PRN PRN 08/29/20 Magnesium Oxide [Magnesium] 400 mg PO QPM 08/29/20 Zinc Gluconate [Zinc] 50 mg PO DAILY 08/29/20 Fluticasone [Flonase] 1 spray TACOS DAILY PRN 03/10/17 traMADol [Ultram] 50 mg PO BID 03/10/17 Ascorbic Acid [Vitamin C] 1,000 mg PO DAILY 08/29/20 Aspirin [Lisa] 325 mg PO DAILY 08/29/20 Cholecalciferol (Vitamin D3) [Vitamin D3] 1,000 unit PO DAILY 08/29/20 Cyanocobalamin (Vitamin B-12) [Vitamin B-12] 1,000 mcg PO DAILY 08/29/20 Ipratropium/Albuterol [Combivent Respimat] 1 puffs IH PRN PRN 08/29/20 Magnesium Oxide [Magnesium] 400 mg PO QPM 08/29/20 Zinc Gluconate [Zinc] 50 mg PO DAILY 08/29/20 Allergies/Adverse Reactions: Allergies Allergy/AdvReac Type Severity Reaction Status Date / Time succinylcholine AdvReac Anaphylaxis Verified 10/20/18 11:08 [From Anectine] anacin migraine Allergy Hives Uncoded 08/29/20 11:33 Anes History & Medical History - Anesthetic History Anesthesia Complications: reports: No previous complications, Muscle weakness Family history of Anesthesia Complications: Denies Family history of Malignant Hyperthermia: Denies - Medical History Cardiovascular: reports: GA (remote hx, no stent), Murmur Pulmonary: reports: Asthma, Sleep apnea Gastrointestinal: reports: None Urinary: reports: None Neuro: reports: None Musculoskeletal: reports: Osteoarthritis Endocrine/Autoimmune: reports: None Blood Disorders: reports: None Skin: reports: None Smoking Status: Never smoker History of Cancer?: No - Surgical History General: reports: Colonoscopy, EGD Gynecologic: reports: Hysterectomy Orthopedic: reports: Carpal Tunnel surgery Exam General: Alert, Oriented x3, Cooperative Dental: WNL, Other (several missing) Mouth Openin Fingerbreadth Neck Mobility: Normal Mallampati classification: II Thyromental Distance: 4-6 cm Respiratory: Lungs clear, Normal breath sounds, No respiratory distress Cardiovascular: Regular rate Neurological: Normal speech Mental/Cognitive Status: Alert/Oriented X3, Normal for patient Cognitive Status: Within normal limits Plan Anesthesia Type: General Consent for Procedure(s) Verified and Reviewed: Yes Code Status: Attempt Resuscitation ASA classification: 3-Severe systemic disease Is this case an emergency?: No
[2020-08-30] MEDS ORDERED: ONDANSETRON 4 MG/2 ML VIAL ONE (11:37)
[2020-08-30] MEDS ORDERED: PROPOFOL 1000 MG/100 ML 1,000 MG/100 ML BOTTLE IV ONE (11:37)
[2020-08-30] MEDS ORDERED: MIDAZOLAM 2 MG/2 ML VIAL ONE (11:38)
[2020-08-30] MEDS ORDERED: fentaNYL 100 MCG/2 ML VIAL ONE (11:38)
[2020-08-30] MEDS ORDERED: oxyCODONE 5 MG TABLET PO PRN (11:42)
[2020-08-30] MEDS ORDERED: KETOROLAC 15 MG/ML VIAL IVP STA (11:42)
[2020-08-30] MEDS ORDERED: ePHEDrine 50 MG/ML VIAL IVP PRN (12:10)
[2020-08-30] MEDS ORDERED: HYDROmorphone 0.5 MG/0.5 ML SYRINGE IVP PRN (12:10)
[2020-08-30] MEDS ORDERED: ONDANSETRON 4 MG/2 ML VIAL IVP PRN (12:10)
[2020-08-30] MEDS ORDERED: METOCLOPRAMIDE 10 MG/2 ML VIAL IVP PRN (12:10)
[2020-08-30] MEDS ORDERED: MORPHINE 2 MG/ML CARPUJECT IVP PRN (12:10)
[2020-08-30] MEDS ORDERED: fentaNYL 100 MCG/2 ML VIAL IVP PRN (12:10)
[2020-08-30] MEDS ORDERED: NALOXONE 0.4 MG/ML VIAL IVP PRN (12:10)
[2020-08-30] MEDS ORDERED: ATROPINE ABBOJECT 1 MG/10 ML SYRINGE IVP PRN (12:10)
[2020-08-30] MEDS ORDERED: BUPIVACAINE 0.5% PF 30 ML VIAL INFIL ONE ×2 (12:12)
[2020-08-30] MEDS ORDERED: LIDOCAINE 2%-EPI 1:100000 20 ML MDV SUBQ ONE ×2 (12:12)
--- NOTE | 2020-08-30 12:24 | OPERATIVE REPORT ---
Operative Report - General Procedure Date: 08/30/20 Planned Procedure: right carpal tunnel release Pre-Op Diagnosis: right carpal tunnel syndrome Procedure Performed: right carpal tunnel release, CPT 96281 Post Op Diagnosis: Same as preoperative diagnosis - Procedure Note Primary Surgeon: Richi Parmar MD Secondary Surgeon: Reinaldo BRADY Anesthesia Provider: Anju Valente CRNA Anesthesia Technique: Local, MAC Indications: This is a 79-year-old woman with advanced symptoms of right carpal tunnel syndrome with numbness in median nerve distribution, positive clinical findings of Tinel and Phalen, thenar atrophy right hand. She has difficulty feeling objects and numbness to her right hand with activities of daily living Findings: There was a nonspecific tenosynovitis about the carpal tunnel. The median nerve was inspected and shows some atrophy. Complications: None - Other Other Information/Narrative: The patient was brought to the operating room and placed in a supine position. The right arm was placed in a arm extension table. A pneumatic tourniquet had been applied to the proximal right arm over cast padding. The right upper extremity was prepped and draped in a sterile manner in the usual fashion. A timeout procedure was performed by the entire operating room team and all were in agreement. 8 cc of 2% lidocaine with epinephrine and .25% marcaine mixture was injected about the right carpal tunnel using a volar approach just proximal to the wrist flexor crease, ulnar to the palmaris longus. An additional amount was injected subcutaneously. A longitudinal incision was made in line with the third webspace. The incision began just distal to the wrist flexor crease and extended for 2.5 cm. The subcutaneous tissue and palmar aponeurosis were d ivided in line with the incision. The transverse carpal ligament was identified proximally and was incised. A blunt obturator was inserted beneath the transverse carpal ligament. The transverse carpal ligament was then divided from proximal to distal under direct visualization. The transverse carpal ligament was divided proximally with blunt tip scissors to achieve a full release of the carpal tunnel. The median nerve was inspected. The wound was irrigated. The skin was closed with interrupted #3-0 monocryl subcuticular suture. A bulky hand dressing was applied to the right hand and wrist with mild compression. A pneumatic tourniquet was not utilized during the procedure. Hemostasis was achieved with letter cautery. The patient tolerated procedure wellA neurosurgical nurse was utilized to provide retraction and protection of vital structures and assist in wound closure and dressing.
[2020-08-30] MEDS ORDERED: LACTATED RINGERS 1,000 ML IV SCH (13:00)
[2020-08-30 13:32] VITALS: BP 112/60
--- NOTE | 2020-08-30 16:45 | ANESTHESIA POST OP EVALUATION ---
Anesthesia Post Eval - Post Anesthesia Eval Vitals: Last Vital Signs Temp 36.5 C 08/30/20 13:15 Pulse 70 08/30/20 13:15 Resp 16 08/30/20 13:15 BP 112/60 08/30/20 13:15 Pulse Ox 100 08/30/20 13:15 CV Function Including HR & BP: Stable Pain Control: Satisfactory Nausea & Vomiting: Negative Mental Status: Baseline Respiratory Status: Airway Patent Hydration Status: Satisfactory Anesthesia Complications: None
== END 2020-08-30 10:14 | disposition home or self-care (01) ==
LOC: SDS 10:13
PROVIDERS: ATTEND Orthopaedic Surgery
PROC: 01N50ZZ Release Median Nerve, Open Approach (ICD-10-PCS; principal; 2020-08-30 11:30)
DX: G56.01 Carpal tunnel syndrome, right upper limb (principal); G47.30 Sleep apnea, unspecified; E66.3 Overweight; Z68.29 Body mass index [BMI] 29.0-29.9, adult
CPT/HCPCS: 64721; J7120

== ENCOUNTER 2021-08-02 13:00 | Outpatient (CLI) | payer MEDICARE, MEDICAID ==
--- NOTE | 2021-08-06 16:36 | Mammography Report ---
BILATERAL DIGITAL SCREENING MAMMOGRAM 3D/2D: 08/02/2021 CLINICAL: Family history of breast cancer. Routine screening. Comparison is made to exams dated: 06/18/2016 mammogram, 06/19/2015 mammogram, and 05/11/2013 mammogram - [facility]. There are scattered fibroglandular elements in both breasts. No significant masses, calcifications, or other findings are seen in either breast. There has been no significant interval change. IMPRESSION: NEGATIVE There is no mammographic evidence of malignancy. A 1 year screening mammogram is recommended. This exam was interpreted at Station ID: [id number]. NOTE: For mammograms, a report in lay terms will be sent to the patient. Approximately 15% of breast malignancies will not be visualized mammographically. In the management of a palpable breast mass, a negative mammogram must not discourage biopsy of a clinically suspicious lesion. Electronically Signed By: Dee de la torre/rebeccarad:08/02/2021 16:22:47 ACR BI-RADS Category 1: Negative 3341F PARENCHYMAL PATTERN: (A) - The breast(s) demonstrate(s) scattered fibroglandular densities. BI-RADS CATEGORY: (1) - 1 RECOMMENDATION: (ANNUAL) - Recommend routine annual screening mammography. [id number] 1 year screening LATERALITY: (B)
== END 2021-08-02 13:01 | disposition home or self-care (01) ==
LOC: DI.N 13:00
PROVIDERS: ATTEND Nurse Practitioner Family
DX: Z12.31 Encounter for screening mammogram for malignant neoplasm of breast (principal); Z80.3 Family history of malignant neoplasm of breast

== ENCOUNTER 2023-01-31 06:23 | Emergency (ER) | payer MEDICARE, MEDICAID ==
[2023-01-31 06:51] VITALS: BP 167/71; O2SAT 97
--- NOTE | 2023-01-31 07:05 | ED Physician Documentation ---
PD HPI BACK PAIN - Stated complaint Stated Complaint: LEG PX - Chief complaint Chief Complaint: Ext Problem - History obtained from History obtained from: Patient - History of Present Illness Timing - onset: Chronic (with worsening the past few weeks to month or more. No noted new injuury. Has had this pain chronica dn sees pain clinic. She talked with provider last visit about potentially increasing med dose. Pt states took 4 tabs/day instead of 3 the past few days only so out of meds last evening. Refill today) Timing - duration: Weeks, Months Timing - details: Gradual onset, Still present Location: Lower, Left Quality: Pain, Aching Associated symptoms: No: Fever, Weakness, Numbness, Incontinent of urine Worsened by: Movement. No: Lifting, Twisting Contributing factors: No: Lifting, Twisting, Trauma Similar symptoms before: Diagnosis (low back pain with disc process and sciatica along with lumbar arthritis and degenerative disease. has had disc injection last year with moderate improvement and had lower med dose for few months. Has been Rx tramadool 3 tabs monthly for past year-luis. Worse pain recently.) Recently seen: Clinic PD PAST MEDICAL HISTORY - Past Medical History Cardiovascular: MA, Murmur Respiratory: Asthma Neuro: None Endocrine/Autoimmune: None GI: None PRIMARY CARE NURSE PRACTITIONER: None : None HEENT: None Psych: Anxiety Musculoskeletal: Other Derm: None - Past Surgical History Past Surgical History: Yes General: Other /PRIMARY CARE NURSE PRACTITIONER: Hysterectomy - Present Medications Home Medications: Ambulatory Orders Medication Instructions Recorded Confirmed traMADol [Ultram] 50 mg PO BID 03/10/17 01/31/23 Ascorbic Acid [Vitamin C] 1,000 mg PO DAILY 08/29/20 01/31/23 Aspirin [Lisa] 325 mg PO DAILY 08/29/20 01/31/23 Cholecalciferol (Vitamin D3) 1,000 unit PO DAILY 08/29/20 01/31/23 [Vitamin D3] Cyanocobalamin (Vitamin B-12) 1,000 mcg PO DAILY 08/29/20 01/31/23 [Vitamin B-12] Magnesium Oxide [Magnesium] 400 mg PO QPM 08/29/20 01/31/23 Zinc Gluconate [Zinc] 50 mg PO DAILY 08/29/20 01/31/23 Acetaminophen [Acetaminophen Extra 500 mg PO BID #60 tablet 01/31/23 Strength] Ibuprofen [Advil] 400 mg PO Q6HR PRN 01/31/23 01/31/23 Magnesium Citrate 1 cap PO DAILY 01/31/23 01/31/23 Magnesium Glycinate 1 cap PO DAILY 01/31/23 01/31/23 Meloxicam [Mobic] 7.5 mg PO DAILY 30 Days #30 tablet 01/31/23 dexAMETHasone [Decadron] 4 mg PO DAILY #5 tablet 01/31/23 - Allergies Allergies/Adverse Reactions: Allergies Allergy/AdvReac Type Severity Reaction Status Date / Time aspirin [From Anacin] Allergy Hives Verified 01/31/23 07:35 caffeine [From Anacin] Allergy Hives Verified 01/31/23 07:35 succinylcholine AdvReac Anaphylaxis Verified 01/31/23 06:44 [From Anectine] - Social History Does the pt smoke?: No Smoking Status: Never smoker Does the pt drink ETOH?: No Does the pt have substance abuse?: No - Immunizations Immunizations are current?: Yes - POLST Patient has POLST: No Results - Vitals Vitals: Vital Signs - 24 hr 01/31/23 06:35 Temperature 37 C Heart Rate 102 H Respiratory 16 Rate Blood Pressure 167/71 H O2 Saturation 97 Oxygen O2 Source Room air PD Medical Decision Making - ED course Complexity details: reviewed old records (her pharmacy refill list and [facility] show regular scripts monthly from just her pain clinic provider and not extra scripts. ), d/w patient ED course: It is reasonable that she will develop tolerance with the same doses of meds over time. Can ajunct short term with steroids/NSAIDs, TYlenol. She is not on ohter meds for chronic pain at this time. Presume Pain Clinic proivders have considered others and chose not to, perhaps not felt effective for the patient process. Pt to discuss it with her Pain Clinic. Departure - Departure Disposition: 01 Home, Self Care Clinical Impression: Back pain, chronic Qualifiers: Back pain location: low back pain Back pain laterality: unspecified Sciatica presence: with sciatica Sciatica laterality: sciatica of left side Qualified Code(s): M54.42 - Lumbago with sciatica, left side Condition: Stable Record reviewed to determine appropriate education?: Yes Instructions: ED Sciatica Follow-Up: JAC LUNA MD [Primary Care Provider] - RHONDA COX PA [Physician No Access] - Prescriptions: Acetaminophen [Acetaminophen Extra Strength] 500 mg PO BID #60 tablet dexAMETHasone [Decadron] 4 mg PO DAILY #5 tablet Meloxicam [Mobic] 7.5 mg PO DAILY 30 Days #30 tablet Comments: Continue with your usual tramadol 3 times a day for now. Discussed with your pain clinic again that the medication has not been working as well recently. It is reasonable that your system builds up tolerance over time and the dose might need to be increased. In addition, I would suggest trying combination medications in conjunction with the tramadol. Initially I would add acetaminophen 500 mg twice daily regularly. This is a very safe dose to be used over the longer term. In the short-term we can also add anti-inflammatories with Decadron initially daily for the next 5 days and then changed to a long-acting NSAID meloxicam which has a long enough half-life to last through the day and can be taken just once daily. Start with a lower dose 7.5 mg once a day. Other health Aurelio is to add, to be discussed with your primary care and the pain clinic would be other medications for long-term pain such as a low-dose amitriptyline 10 to 25 mg nightly and some antidepressants help with long-term pain as well such as duloxetine/Cymbalta. This is a separate effect from the antidepressant effect. I sent prescriptions for some of the basic medications to your [facility] pharmacy. You can pick that up today along with your refill for your tramadol from the Pain Clinic provider. Forms: PCP List Discharge Date/Time: 01/31/23 08:17
[2023-01-31] MEDS ORDERED: KETOROLAC 30 MG/ML VIAL IM STA (07:30)
[2023-01-31] MEDS ORDERED: dexAMETHasone 4 MG TABLET PO STA (07:31)
[2023-01-31] MEDS ORDERED: traMADol 50 MG TABLET PO STA (07:31)
[2023-01-31] MEDS ORDERED: ACETAMINOPHEN 325 MG TABLET PO STA (07:31)
== END 2023-01-31 08:17 | disposition home or self-care (01) ==
LOC: ED 06:23
DX: M54.42 Lumbago with sciatica, left side (principal); G89.29 Other chronic pain; Z76.0 Encounter for issue of repeat prescription
CPT/HCPCS: 96372; 99283; 99284; A9270; J8540

== ENCOUNTER 2023-04-18 23:20 | Outpatient (CLI) | payer MEDICARE, MEDICAID | END 2023-04-18 23:21 | disposition critical access hospital (66) | LOC: EMS 23:20 | DX: R25.2 Cramp and spasm (principal) | CPT/HCPCS: A0425; A0429 ==

== ENCOUNTER 2023-04-18 23:23 | Emergency (ER) | payer MEDICARE, MEDICAID | END 2023-04-18 23:53 | disposition left against medical advice (07) | LOC: EDUNIT# → ED 23:23 | DX: Z53.21 Procedure and treatment not carried out due to patient leaving prior to being seen by health care provider (principal) ==